=== PATIENT | female | born 1980 | race Caucasian/White ===

== ENCOUNTER 2017-05-02 17:35 | Emergency (ER) | payer OTHER ==
[2017-05-02] MEDS ORDERED: guaiFENesin/CODEINE 5 ML UDC PO STA (18:17)
--- NOTE | 2017-05-02 18:19 | ED Physician Documentation ---
PD HPI DYSPNEA - Stated complaint Stated Complaint: COUGH - Chief complaint Chief Complaint: Resp - History obtained from History obtained from: Patient - History of Present Illness Timing - onset: Other (For about 2 months she has had a worsening hacking cough that is occasionally productive, today it was much worse with posttussive emesis and shortness of breath but she denies any fevers. Last tetanus shot was in her teens. No underlying lung issues.) Review of Systems Constitutional: denies: Fever, Chills Cardiac: denies: Chest pain / pressure, Palpitations, Pedal edema, Calf pain Respiratory: reports: Dyspnea, Cough, Wheezing. 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 Psych: None Derm: None - Past Surgical History Past Surgical History: Yes General: Colonoscopy, EGD - Present Medications Home Medications: Ambulatory Orders Medication Instructions Recorded Confirmed Esomeprazole Magnesium [Nexium] 20 mg DAILY 05/15/15 05/15/15 Norgestrel-Ethinyl Estradiol 05/15/15 05/15/15 [[id number] Tablet] Albuterol Sulfate [Proventil Hfa 1 - 2 puffs IH Q4H PRN #1 05/02/17 Inhaler] hfa.aer.ad Azithromycin [Zithromax] 250 mg PO DAILY #6 tablet 05/02/17 Benzonatate [Tessalon] 200 mg PO TID PRN #20 capsule 05/02/17 guaiFENesin/CODEINE [Robitussin AC] 5 - 10 ml PO Q6H PRN #120 ml 05/02/17 predniSONE [Deltasone] 20 mg PO [id number] #21 tab 05/02/17 - Allergies Allergies/Adverse Reactions: Allergies Allergy/AdvReac Type Severity Reaction Status Date / Time iodine Allergy Rash Verified 05/15/15 20:11 - Social History Does the pt smoke?: No Smoking Status: Never smoker Does the pt drink ETOH?: Yes Does the pt have substance abuse?: No - Immunizations Immunizations are current?: No Immunizations: TDAP >10years/unknown PD ED PE NORMAL - Vitals Vital signs reviewed: Yes - General General: Alert and oriented X 3, No acute distress - HEENT HEENT: Pharynx benign - Cardiac Cardiac: RRR, No murmur - Respiratory Respiratory: No respiratory distress, Other (Frequent cough, she has diffuse wheezing with moderate air movement.) - Abdomen Abdomen: Non tender - Neuro Neuro: Alert and oriented X 3, Normal speech - Psych Psych: Normal mood, Normal affect Results - Vitals Vitals: Vital Signs - 24 hr 05/02/17 17:38 Temperature 36.3 C L Heart Rate 84 Respiratory 18 Rate Blood Pressure 147/100 H O2 Saturation 100 Oxygen O2 Source Room air - Rads (name of study) 2v chest Radiology: EMP read contemporaneously (NAD) PD MEDICAL DECISION MAKING - ED course ED course: 36-year-old woman with subacute cough and wheezing, With posttussive emesis. Pertussis is considered and she is tested for it. Given greater than 2 weeks of duration she does fit IDSA guidelines for bronchitis treatment with antibiotics. Departure - Departure Disposition: 01 Home, Self Care Clinical Impression: Bronchitis Condition: Good Record reviewed to determine appropriate education?: Yes Instructions: ED Bronchitis Asthmatic Prescriptions: predniSONE [Deltasone] 20 mg PO [id number] #21 tab Albuterol Sulfate [Proventil Hfa Inhaler] 1 - 2 puffs IH Q4H PRN #1 hfa.aer.ad PRN Reason: Cough guaiFENesin/CODEINE [Robitussin AC] 5 - 10 ml PO Q6H PRN #120 ml PRN Reason: Cough Benzonatate [Tessalon] 200 mg PO TID PRN #20 capsule PRN Reason: Cough Azithromycin [Zithromax] 250 mg PO DAILY #6 tablet Comments: We will call if your pertussis swab is positive in a few days. You can take the codeine containing cough syrup at night and the Tessalon/benzonatate during the day. Do not drink or drive after taking the codeine. Your blood pressure was elevated today on check into the emergency department. This does not mean that you have hypertension, it is a common phenomenon to come to the emergency department and have elevated blood pressure. I recommend that she see her primary care physician within the week to have it rechecked when you are feeling better. Call your doctor to arrange a follow-up appointment, make the next available appointment. In the interim, return anytime if worse or if new symptoms develop. Forms: Activity restrictions
[2017-05-02] MEDS ORDERED: guaiFENesin/CODEINE 5 ML UDC ONE (18:26)
--- NOTE | 2017-05-02 18:44 | XRAY Preliminary Report ---
Exam: XR Chest 2 View PA/LAT IMPRESSION: Normal 2-view chest radiography. [facility] SITE ID: [id number]
--- NOTE | 2017-05-02 18:46 | XRAY Report ---
EXAM: CHEST RADIOGRAPHY EXAM DATE: 05/02/2017 06:13 PM. CLINICAL HISTORY: Persistent cough. COMPARISON: None. TECHNIQUE: 2 views. FINDINGS: Lungs/Pleura: No focal opacities evident. No pleural effusion. No pneumothorax. Normal volumes. Mediastinum: Heart and mediastinal contours are unremarkable. Other: None. IMPRESSION: Normal 2-view chest radiography. [facility] Referring Provider Line: [phone] SITE ID: [id number]
[2017-05-02 18:55] VITALS: BP 135/95
[2017-05-05 06:51] LABS: B. PARAPERTUSSIS DNA NOT DETECTED (()); B. PERTUSSIS DNA NOT DETECTED (())
== END 2017-05-02 18:53 | disposition home or self-care (01) ==
LOC: ED 17:35
DX: J40 Bronchitis, not specified as acute or chronic (principal); R03.0 Elevated blood-pressure reading, without diagnosis of hypertension; K21.9 Gastro-esophageal reflux disease without esophagitis
CPT/HCPCS: 71020; 87801; 99283; A9270

== ENCOUNTER 2017-07-02 11:34 | Emergency (ER) | payer OTHER ==
[2017-07-02 11:39] VITALS: BP 149/89
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
[2017-07-02] MEDS: TETANUS/DIPHTHERIA/PERTUSSIS 0.5 ML SYRINGE IM ONE (12:52)
[2017-07-02] MEDS ORDERED: TETANUS/DIPHTHERIA/PERTUSSIS 0.5 ML SYRINGE IM ONE (12:56)
== END 2017-07-02 13:08 | disposition home or self-care (01) ==
LOC: ED 11:34
DX: T22.212A Burn of second degree of left forearm, initial encounter (principal); T31.0 Burns involving less than 10% of body surface; X19.XXXA Contact with other heat and hot substances, initial encounter; Z23 Encounter for immunization; E05.90 Thyrotoxicosis, unspecified without thyrotoxic crisis or storm; E03.9 Hypothyroidism, unspecified
CPT/HCPCS: 90471; 99282

== ENCOUNTER 2017-07-15 12:57 | Emergency (ER) | payer OTHER ==
[2017-07-15 13:06] VITALS: BP 144/88
--- NOTE | 2017-07-15 14:20 | ED Physician Documentation ---
PD HPI OPHTHO - Stated complaint Stated Complaint: BILAT EYE IRRITATION - Chief complaint Chief Complaint: Heent - History obtained from History obtained from: Patient - History of Present Illness Timing - onset: How many days ago (2) Timing - duration: Days (2) Timing - details: Gradual onset, Still present Location: Both Quality / character: Burning, Aching Associated symptoms: Redness, Swelling, Matting. No: Photophobia, Decreased vision Contributing factors: No: Wears contacts Similar symptoms before: Has not had sx before Recently seen: Not recently seen Review of Systems Constitutional: denies: Fever, Chills Eyes: reports: Discharge, Irritation. 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 Psych: Anxiety Derm: None - Past Surgical History Past Surgical History: Yes General: Colonoscopy, EGD - Present Medications Home Medications: Ambulatory Orders Medication Instructions Recorded Confirmed Duloxetine HCl 1 tab PO DAILY 07/02/17 07/15/17 Levothyroxine [Synthroid] 1 tab PO DAILY 07/02/17 07/15/17 Loperamide [Imodium] 1 tab PO PRN PRN 07/02/17 07/15/17 Norgestrel-Ethinyl Estradiol 0.3 mg PO DAILY 07/02/17 07/15/17 [Cryselle-28 Tablet] Omeprazole [PriLOSEC] 1 tab PO DAILY 07/02/17 07/15/17 Neomycin/Poly/Dex Ophth Drops 1 drops EACHEYE Q3H #1 bottle 07/15/17 [Maxitrol Ophth Drops] - Allergies Allergies/Adverse Reactions: Allergies Allergy/AdvReac Type Severity Reaction Status Date / Time iodine Allergy Rash Verified 07/15/17 13:07 - Social History Does the pt smoke?: No Smoking Status: Never smoker Does the pt drink ETOH?: Yes Does the pt have substance abuse?: No - Immunizations Immunizations are current?: Yes Immunizations: TDAP >10years/unknown - POLST Patient has POLST: No PD ED PE NORMAL - Vitals Vital signs reviewed: Yes - General General: Alert and oriented X 3, No acute distress, Well developed/nourished - HEENT HEENT: PERRL, EOMI PD ED PE EXPANDED - Eyes Eyes: Both eyes, Eyelid swelling, Injected conj/sclera, Exudate, Anterior chambers clear, Normal fundi. No: Corneal FB, Corneal abrasion Results - Vitals Vitals: Oxygen O2 Source Room air PD MEDICAL DECISION MAKING - ED course Complexity details: considered differential, d/w patient Departure - Departure Disposition: Home, Self Care Clinical Impression: Conjunctivitis Qualifiers: Conjunctivitis type: acute Acute conjunctivitis type: bacterial Laterality: bilateral Qualified Code(s): H10.33 - Unspecified acute conjunctivitis, bilateral Condition: Stable Record reviewed to determine appropriate education?: Yes Instructions: ED Conjunctivitis Bacterial Follow-Up: Ze Dang DO [Primary Care Provider] - Prescriptions: Neomycin/Poly/Dex Ophth Drops [Maxitrol Ophth Drops] 1 drops EACHEYE Q3H #1 bottle Comments: Use the eyedrops every 2-3 hours initially tonight and tomorrow and then 4 times a day for total of 4-5 days. You should be able to return to work tomorrow. The eyedrops contain both antibiotic and anti-inflammatory to treat infection as well as inflammation. Recheck if not improved over the next 2-3 days. Forms: Activity restrictions Discharge Date/Time: 07/15/17 14:54
== END 2017-07-15 14:54 | disposition home or self-care (01) ==
LOC: ED 12:57
DX: H10.33 Unspecified acute conjunctivitis, bilateral (principal)
CPT/HCPCS: 99283